=== PATIENT | female | born 1965 | race Two or more races ===

== ENCOUNTER 2020-10-30 15:30 | Inpatient (IN) | payer MEDICAID ==
[~2020-10-30] VITALS: Ht 157.5 cm; Wt 86.2 kg
[2020-10-30] MEDS: CEFTRIAXONE 1 G in IV D5W 50 ML IV SCH (00:45)
[2020-10-30] MEDS ORDERED: ACET-868 PO (16:03)
--- NOTE | 2020-10-30 16:22 | NUR ---
BIBSFAMILY FROM HOME TO ER BED 6. AAOX4. HYPOXIC NOTED 84% ON RA. BREATHING RAOID SHALLOW AND RAPID. AMBULATORY. BROUGHT INFOR SOB. PT REPROTS THAT SHE SYMPTOMS STARTED 9 DAYS AGO WORST IN THE PAST 2 DAYS. PT STATE THAT HSE FELLS WEAKA AND REPORTS NON PRODUCTIVE COUGH. PT REPORTS THAT SHE HAS BEEN EXPOSED TO HER DAUGHTER WHICH IS COVID POSITIVE. PT ON O2 VIA NC @ 4LPM, SATTING AT 95%. WAS AT THE BEDSIDE FOR EVAL. ORDERS RECEIVED, NOTED AND CARRIED OUT. IV LINE ESTABLISHED ON L AC 18G, BLOOD DRAWN AND GIVEN TO NEUROPSYCHOLOGY DIVISION CHIEF. COVID SWAB DONE WELL CHEST XRAY. PT ON MONITOR
[2020-10-30 16:33] LABS: BASOPHILS % (AUTO) 0.5 % (0.0-2.0); HEMATOCRIT 43 % (33-45); HEMOGLOBIN 14.1 g/dL (11.5-14.8); LYMPHOCYTES # (AUTO) 0.6 /CMM (0.8-4.8); MEAN CORPUSCULAR HGB CONC 33 g/dl (31.0-36.0); MEAN CORPUSCULAR VOLUME 92 fL (82-100); MONOCYTES # (AUTO) 0.6 /CMM (0.1-1.30); MONOCYTES % (AUTO) 9.6 % (2.0-12.0); NEUTROPHILS # (AUTO) 5.1 /CMM (1.8-8.9); NEUTROPHILS % (AUTO) 80.9 % (43.0-81.0); PLATELET COUNT (AUTO) 151 /CMM (150-450); RED BLOOD CELL COUNT(AUTO) 4.63 MIL/uL (4.0-5.2); WHITE BLOOD COUNT (AUTO) 6.3 K/uL (4.3-11.0)
[2020-10-30 16:38] LABS: CALCIUM, SERUM 8.5 mg/dL (8.5-10.1); CREATININE 0.9 mg/dL (0.6-1.3); POTASSIUM 3.6 mmol/L (3.5-5.1)
[2020-10-30 16:44] LABS: ALBUMIN 2.7 g/dL (3.4-5.0); BILIRUBIN,DIRECT 0.3 mg/dL (0.0-0.2); BILIRUBIN,TOTAL 0.5 mg/dL (0.2-1.0); TOTAL PROTEIN, SERUM 7.1 g/dL (6.4-8.2)
[2020-10-30 17:10] LABS: D-DIMER 1.68 mg/L(FEU (0.17-0.50)
[2020-10-30] MEDS ORDERED: AZITHROMYCIN 500 MG in IV D5W 250 ML IV ONE (19:00)
[2020-10-30] MEDS ORDERED: ENOXAPARIN SODIUM 40 MG/0.4 ML DISP.SYRIN SQ ONE ×2 (19:00→19:21)
[2020-10-30] MEDS ORDERED: DEXAMETHASONE SOD PHOSPHATE 10 MG/ML VIAL IV ONE (19:00)
[2020-10-30] MEDS ORDERED: CEFTRIAXONE 1GM BAG (ER ONLY) 1 GM/50 ML PIGGYBACK IV ONE (19:00)
[2020-10-30] MEDS ORDERED: CEFTRIAXONE 1GM BAG (ER ONLY) 50 ML IV ONE (19:21)
[2020-10-30] MEDS ORDERED: DEXAMETHASONE SOD PHOSPHATE 10 MG/ML VIAL ONE (19:21)
--- NOTE | 2020-10-30 19:55 | NUR ---
CALLED [facility] PAGED OSMAN LEAL
[2020-10-30] MEDS ORDERED: ONDANSETRON HCL/PF 4 MG/2 ML VIAL IVP PRN (20:30)
[2020-10-30] MEDS ORDERED: ALBUTEROL SULFATE 8 GM HFA.AER.AD IH PRN (20:30)
[2020-10-30] MEDS ORDERED: ACETAMINOPHEN 650 MG/SUPP.RECT RC PRN (20:30)
--- NOTE | 2020-10-30 22:21 | NUR ---
PT NOTED W/ 02 SAT OF 92% DESPITE USING O2 VIA NC AT 6LPM. PT TRANSITIONED TO SIMPLE FACE MASK AT 10LPM.
--- NOTE | 2020-10-30 22:45 | NUR ---
pt is satting well @ 98%. not in distress.
--- NOTE | 2020-10-30 23:18 | NUR ---
pt titrated down to 8lpm simple face mask. satting @ 97%.
--- NOTE | 2020-10-30 23:19 | NUR ---
pt in bed sleeping
--- NOTE | 2020-10-31 00:26 | NUR ---
TOOK OVER PT CARE. PT PLACED IN N/C 4L, SAT 86%. PT THEN PLACED ON 10L SIMPLE MASK SAT 90%. PT AAOX4. AWARE OF BEING ADMITTED. WILL CONTINUE TO MONITOR.
[2020-10-31] MEDS ORDERED: ROCURONIUM BROMIDE 50 MG/5 ML IV ONE (04:01)
[2020-10-31] MEDS ORDERED: ETOMIDATE 2 MG/ML VIAL IV ONE (04:01)
[2020-10-31 05:34] LABS: BASOPHILS % (AUTO) 0.4 % (0.0-2.0); EOSINOPHILS % (AUTO) 0.1 % (0.0-6.0); HEMATOCRIT 42 % (33-45); HEMOGLOBIN 13.8 g/dL (11.5-14.8); LYMPHOCYTES # (AUTO) 0.4 /CMM (0.8-4.8); LYMPHOCYTES % (AUTO) 13.9 % (20.0-44.0); MEAN CORPUSCULAR HGB CONC 33 g/dl (31.0-36.0); MEAN CORPUSCULAR VOLUME 91 fL (82-100); MONOCYTES # (AUTO) 0.2 /CMM (0.1-1.30); MONOCYTES % (AUTO) 7.3 % (2.0-12.0); NEUTROPHILS # (AUTO) 2.5 /CMM (1.8-8.9); NEUTROPHILS % (AUTO) 78.3 % (43.0-81.0); PLATELET COUNT (AUTO) 163 /CMM (150-450); RED BLOOD CELL COUNT(AUTO) 4.63 MIL/uL (4.0-5.2); WHITE BLOOD COUNT (AUTO) 3.2 K/uL (4.3-11.0)
[2020-10-31 05:54] LABS: ALBUMIN 2.5 g/dL (3.4-5.0); BILIRUBIN,TOTAL 0.4 mg/dL (0.2-1.0); CALCIUM, SERUM 8.9 mg/dL (8.5-10.1); CREATININE 0.7 mg/dL (0.6-1.3); MAGNESIUM 2.2 mg/dL (1.8-2.4); PHOSPHORUS 2.6 mg/dL (2.5-4.9); TOTAL PROTEIN, SERUM 7.1 g/dL (6.4-8.2)
[2020-10-31 06:00] LABS: THYROID STIMULATING HORMONE 0.085 uIU/mL (0.358-3.74)
[2020-10-31] MEDS: DEXAMETHASONE SOD PHOSPHATE 10 MG/ML VIAL IV SCH (08:50)
[2020-10-31] MEDS: ENOXAPARIN SODIUM 40 MG/0.4 ML DISP.SYRIN SQ SCH (08:51)
--- NOTE | 2020-10-31 11:20 | NUR ---
PT IS AWAKE, ALERT AND ORIENTED. NAD NOTED. AMBULATORY. STILL ON O2 VIA FACE MASK @ 8LPM SATTING @ 96%.
--- NOTE | 2020-10-31 16:32 | NUR ---
JENNIE MICHAEL, PT'S SON UPDATED REGARDING MOTHERS CONDITION AND AWARE THAT PT IS GOING TO BE ADMITTED. PT'S AUTHORIZED TO GIVE INFORMATION TO THE SON.
--- NOTE | 2020-10-31 16:37 | NUR ---
ABBY MICHAEL, SON [phone]
--- NOTE | 2020-10-31 19:16 | NUR ---
PT SEATING AT BEDSIDE EATING DINNER.
--- NOTE | 2020-10-31 20:35 | NUR ---
pt noted with o2 sat 87% on 8lpm via simple face mask. placed on non rebreather mask @ 15lpm.
[2020-10-31] MEDS ORDERED: CEFTRIAXONE 1GM BAG (ER ONLY) 50 ML IV ONE (20:47)
[2020-10-31] MEDS ORDERED: AZITHROMYCIN 250 MG TABLET ONE (20:48)
--- NOTE | 2020-10-31 20:52 | NUR ---
depite placing pt on non rebreather at 15lpm, pt is still satting @ 91%. Dr. Woods was notified and received an order to place pt on high flow o2. RT made aware.
[2020-10-31] MEDS: CEFTRIAXONE 1 G in IV D5W 50 ML IV SCH (21:03)
[2020-10-31] MEDS: AZITHROMYCIN 250 MG TABLET PO SCH (21:03)
--- NOTE | 2020-10-31 21:50 | NUR ---
pt in is placed on hi flow o2 by rt @ 40lpm, 100%.
[2020-11-01] MEDS: DEXAMETHASONE SOD PHOSPHATE 10 MG/ML VIAL IV SCH (09:13)
[2020-11-01] MEDS: ENOXAPARIN SODIUM 40 MG/0.4 ML DISP.SYRIN SQ SCH ×2 (09:14→21:23)
--- NOTE | 2020-11-01 13:00 | NUR ---
report given to adam burr
--- NOTE | 2020-11-01 13:30 | NUR ---
pt transferred to 115
[2020-11-01 13:34] VITALS: BP 128/73
--- NOTE | 2020-11-01 14:24 | NUR ---
RN ADMITTING NOTE Patient arrived at 1340, ambulated from [facility] to bed, denies any pain. SOB upon exertion, accessory muscle use when breathing, RR 24, o2 sat 86% on 15L non-rebreather. RT placed patient on 60L high-flow o2, Fio2 95%, with additional non-rebreather mask on top--saturating 91-94%. Patient denies any PMH, denies smoking, alcohol, drug use. Skin is intact. Bed is in lowest position, side rails x2 in upright position, call light is within reach, fal safety and aspiration precautions enforced. Will continue with plan of care.
[2020-11-01 14:38] LABS: ABG BASE EXCESS 3.3 mmol/L; ABG OXYGEN SATURATION 94.6 % (92.0-98.5); ABG PCO2 36.1 mmHg (35.0-45.0); ABG PH 7.484 (7.350-7.450); ABG PO2 71.3 mmHg (75.0-100.0); AaDO2 605.6 mmHg; COHb 0.2 % (0.5-1.5); MetHb 0.2 % (0.0-1.5); O2Hb 94.2 % (94.0-97.0); SITE, ABG Right Radial; VENT MODE, BG HFNC 40L 95% 100%
[2020-11-01 16:00] VITALS: BP 130/70
[2020-11-01] MEDS ORDERED: REMDESIVIR (CHARGED) 200 MG, *LOADING DOSE 1 EA in IV NS 0.9% 210 ML IV ONE (17:00)
--- NOTE | 2020-11-01 18:46 | NUR ---
RN CLOSING NOTE Patient is resting in bed, A/O x4, . SOB upon exertion, accessory muscle use when breathing, RR 24, o2 sat 86% on 15L non-rebreather. RT placed patient on 60L high-flow o2, Fio2 95%, with additional non-rebreather mask on top--saturating 97%. All patient needs met, all due medications given, patient is independent with self care. Bed is in lowest position, side rails x2 in upright position, call light is within reach, fal safety and aspiration precautions enforced. Will endorse to casino shift manager for LI.
[2020-11-01 20:00] VITALS: BP 130/75
--- NOTE | 2020-11-01 20:00 | NUR ---
RN OPENING NOTE: Patient in bed resting comfortably. She is awake, alert, and oriented x4, able to make needs known. Patient breathing well on high flow oxygen with non rebreather over. No acute respiratory distress noted. On quality assurance monitor chassis, sinus rhythm in the 70s. IV access noted on left AC, 18 gauge. Safety measures in place, bed is in the lowest level, bed is locked, alarm is on, side rails x2 are up, and call light is within reach. Will continue to monitor.
[2020-11-01] MEDS ORDERED: CEFTRIAXONE 1 G VIAL ONE (21:18)
[2020-11-01] MEDS: AZITHROMYCIN 250 MG TABLET PO SCH (21:20)
[2020-11-01] MEDS: CEFTRIAXONE 1 G in IV D5W 50 ML IV SCH (21:20)
[2020-11-02] VITALS (8 sets, daily range): BP systolic 120–134; BP diastolic 61–83
--- NOTE | 2020-11-02 03:27 | NUR ---
ordered Tylenol 650 PO and MICHELLE Tylenol 650 suppository.
[2020-11-02] MEDS: ACETAMINOPHEN 325 MG TABLET PO PRN (04:51)
[2020-11-02 07:11] LABS: ALBUMIN 2.3 g/dL (3.4-5.0); BILIRUBIN,DIRECT 0.2 mg/dL (0.0-0.2); BILIRUBIN,TOTAL 0.4 mg/dL (0.2-1.0); CALCIUM, SERUM 8.6 mg/dL (8.5-10.1); CREATININE 0.7 mg/dL (0.6-1.3); POTASSIUM 3.8 mmol/L (3.5-5.1); TOTAL PROTEIN, SERUM 6.4 g/dL (6.4-8.2)
[2020-11-02 07:26] LABS: BASOPHILS % (AUTO) 0.1 % (0.0-2.0); HEMATOCRIT 39 % (33-45); HEMOGLOBIN 12.7 g/dL (11.5-14.8); LYMPHOCYTES # (AUTO) 0.9 /CMM (0.8-4.8); LYMPHOCYTES % (AUTO) 6.9 % (20.0-44.0); MEAN CORPUSCULAR HGB CONC 33 g/dl (31.0-36.0); MEAN CORPUSCULAR VOLUME 91 fL (82-100); MONOCYTES # (AUTO) 1.7 /CMM (0.1-1.30); MONOCYTES % (AUTO) 13.4 % (2.0-12.0); NEUTROPHILS % (AUTO) 79.6 % (43.0-81.0); PLATELET COUNT (AUTO) 225 /CMM (150-450); RED BLOOD CELL COUNT(AUTO) 4.27 MIL/uL (4.0-5.2); WHITE BLOOD COUNT (AUTO) 12.5 K/uL (4.3-11.0)
--- NOTE | 2020-11-02 07:30 | NUR ---
RN TELE1 PATIENT IN BED, NO S/S OF DISTRESS, ON HIGH FLOW WITH NON REBREATHER, A/O X4, TELE MONITOR IN PLACE, SINUS RHYTHM, HR IN THE 70S, BATHROOM PRIVILEGES WITH ASSIST, AMBULATES WITH ASSIST, SKIN INTACT, FALL RISK, BED ALARM ON, REGULAR DIET, BED IN LOWEST LOCKED POSITION, CALL LIGHT WITHIN REACH, SAFETY MEASURES IN PLACE, WILL CONTINUE TO MONITOR.
--- NOTE | 2020-11-02 07:54 | NUR ---
RN CLOSING NOTE: Patient in bed resting comfortably. Patient breathing even and unlabored with no SOB or acute respiratory distress. All needs were met. Safety measures maintained. Bed is in the lowest level, bed is locked, alarm is on, side rails x2 are up, and call light is within reach. Endorsed to morning nurse.
[2020-11-02] MEDS: DEXAMETHASONE SOD PHOSPHATE 10 MG/ML VIAL IV SCH (08:53)
[2020-11-02] MEDS: ENOXAPARIN SODIUM 40 MG/0.4 ML DISP.SYRIN SQ SCH ×2 (08:54→20:40)
--- NOTE | 2020-11-02 09:30 | NUR ---
RN TELE1 PATIENT WANTED TO WALK TO THE BATHROOM, O2 SATURATION IS 96%, SO APPROVED WITH RT AND CHARGE NURSE TO PUT THE PATIENT ON THE NON REBREATHER, PATIENT USED CANE, TOLERATED WELL, WAS SLIGHTLY SHORT OF BREATH AND O2 SAT DROPPED TO THE 70S BUT JUMPED BACK UP TO 98% ONCE BACK IN BED WITH HIGH FLOW ON.
--- NOTE | 2020-11-02 10:59 | NUR ---
RN TELE1 SPOKE TO VADIM, ROUNDING FOR DR VICTORIA, NOTIFIED OF THE PATIENTS EXPERIENCE GOING TO THE BATHROOM, SHE SAID IT IS FINE THAT SHE DESATURATED WHEN WALKING LONG HER O2 WENT BACK UP ONCE IN BED, WHICH IT DID. NO NEW ORDERS.
--- NOTE | 2020-11-02 12:30 | NUR ---
RN TELE1 REPOSITION THE PATIENT, TO SITTING ON THE SIDE OF THE BED WITH FEET DANGLING IN ORDER TO EAT LUNCH
--- NOTE | 2020-11-02 14:31 | NUR ---
ROUNDED ON PATIENT, SHE SAID SHE WAS HOT BUT HER TEMPERATURE IS UNCHANGED, DECREASED THE TEMPERATURE IN THE ROOM 2 DEGREES, WILL CONTINUE TO MONITOR, O2 SAT 95%.
--- NOTE | 2020-11-02 15:24 | NUR ---
RN TELE1 PATIENT RESTING IN BED, COMPLAINED THE PULSE OX WAS TOO TIGHT ON HER FINGER, REPLACED IT AND MOVED TO THE MIDDLE FINGER OF THE RIGHT HAND.
[2020-11-02] MEDS: REMDESIVIR (CHARGED) 100 MG in IV NS 0.9% 230 ML IV SCH (16:13)
--- NOTE | 2020-11-02 16:51 | NUR ---
RN TELE1 PATIENT IS IN BED, NO CHANGES, GAVE REPORT TO ABIGAIL GOODEN ON THE UNIT. ENDORSED CARE.
--- NOTE | 2020-11-02 17:30 | NUR ---
RECEIVED REPORT FROM ABIGAIL GARCIA FOR CONTINUATION OF CARE.
--- NOTE | 2020-11-02 18:57 | NUR ---
WARP CLAMPER CLOSED NOTES PATIENT IS A/O X 4 WITH HIGHFLOW O2 FLOW RATE 60 SPO2 97%. NO COMPLAIN OF PAIN AT THIS TIME. IN L AC #18g SL. PATIENT KEPT CLEAN AND DRY. ALL NEEDS, CARE, TREATMENT,AND MEDICATIONS WERE ADMINISTERED ANTICIPATED PER ORDER. SAFETY MEASURES ARE APPLIED, BED IS IN LOW POSITION SIDE RAILS UP X 2. CALL LIGHT WITHIN REACH WILL ENDORSE TO THE SUPERINTENDENT SALES NURSE.
--- NOTE | 2020-11-02 20:00 | NUR ---
RN NOTE RECEIVED PT IN BED RESTING, PT IS A/O X4 ON HIGH FLOW 60L/MIN SATING 96%. PT IS ON ASSISTANT PROFESSOR OF COMMUNICATION SHOWINGSR WITH HR IN 70s. SAFETY MEASURES IN PLACE.
[2020-11-02] MEDS: CEFTRIAXONE 1 G in IV D5W 50 ML IV SCH (20:41)
[2020-11-02] MEDS: AZITHROMYCIN 250 MG TABLET PO SCH (20:41)
--- NOTE | 2020-11-02 22:00 | NUR ---
RN NOTE REPORT GIVEN TO THE NURSE FOR LI.
--- NOTE | 2020-11-02 22:10 | NUR ---
RN NOTES: RECEIVED ENDORSEMENT FROM LIANE/RN, LYING IN BED, ON HIGH FLOW 60L/MIN SATING 96%,TELE MONITORING SR RATE 70'S, ON CLOSE WATCH, DROPLET/CONTATC PRECAUTION OBSERVED.ORIENTED TO INCOMING STAFF, FALL AND SAFETY PRECAUTION OBSERVED, BED LOW AND LOCKED, CALL LIGHT WITHIN EASY REACH. SAFETY MEASURES IN PLACE.
[2020-11-03] VITALS (7 sets, daily range): BP systolic 133–152; BP diastolic 61–77
--- NOTE | 2020-11-03 00:34 | NUR ---
RN NOTES: AROUND 2319 SHE REQUEST TO PEE IN THE BED PAD ASSITED BY RN AND CHARTER PILOT, ABLE TO PEE AROUND 150CC DARK TEA COLORED URINE.CLEAN AND CHANGE.
--- NOTE | 2020-11-03 05:10 | NUR ---
RN NOTES: ASLEEP AT SHORT INTERVAL, KEPT IN HIGH FOWLERS POSITION CHECK AT FREQUENT INTERVALS, AROUND 0330 RT NOTIFIED TO CHECK THE PATIENT, NO SIGN OF RESPIRATORY DEPRESSION SPO2 REMAIN BETWEEN 93-94%.GET BACK TO SLEEP.
--- NOTE | 2020-11-03 06:19 | NUR ---
RN NOTES: NO PAIN OR DISCOMFORT ABLE TO REST AND SLEEP, BED LOW AND LOCKED, CALL LIGHT KEPT WITHIN EASY REACH, SIDE RAILS X2 UP, SPO2 REMAIN 92-93%, ON HIGH FLOW OXYGEN. NEEDS ATTENDED ENDORSED FOR CONTINUITY OF CARE.
[2020-11-03 06:45] LABS: BASOPHILS % (AUTO) 0.2 % (0.0-2.0); EOSINOPHILS % (AUTO) 0.2 % (0.0-6.0); HEMATOCRIT 39 % (33-45); LYMPHOCYTES % (AUTO) 8.6 % (20.0-44.0); MEAN CORPUSCULAR HGB CONC 33 g/dl (31.0-36.0); MEAN CORPUSCULAR VOLUME 91 fL (82-100); MONOCYTES % (AUTO) 8.4 % (2.0-12.0); NEUTROPHILS # (AUTO) 9.8 /CMM (1.8-8.9); NEUTROPHILS % (AUTO) 82.6 % (43.0-81.0); PLATELET COUNT (AUTO) 196 /CMM (150-450); RED BLOOD CELL COUNT(AUTO) 4.32 MIL/uL (4.0-5.2); WHITE BLOOD COUNT (AUTO) 11.8 K/uL (4.3-11.0)
[2020-11-03 07:04] LABS: ALBUMIN 2.5 g/dL (3.4-5.0); BILIRUBIN,DIRECT 0.2 mg/dL (0.0-0.2); BILIRUBIN,TOTAL 0.6 mg/dL (0.2-1.0); CALCIUM, SERUM 8.5 mg/dL (8.5-10.1); CREATININE 0.6 mg/dL (0.6-1.3); POTASSIUM 3.8 mmol/L (3.5-5.1); TOTAL PROTEIN, SERUM 6.7 g/dL (6.4-8.2)
--- NOTE | 2020-11-03 08:00 | NUR ---
MANAGER EMPLOYEE BENEFITS OPENING NOTES PATIENT IS A/O X 4 WITH HIGHFLOW O2 FLOW RATE 60 SPO2 97%. DENIES SOB. WITH OCCASIONAL MOIST COUGHING EPISODES. NO COMPLAIN OF PAIN AT THIS TIME. IN L AC #18g SL. PATIENT KEPT CLEAN AND DRY. SAFETY MEASURES ARE APPLIED, BED IS IN LOW POSITION SIDE RAILS UP X 2. CALL LIGHT WITHIN REACH
[2020-11-03] MEDS: DEXAMETHASONE SOD PHOSPHATE 10 MG/ML VIAL IV SCH (12:22)
[2020-11-03] MEDS: ENOXAPARIN SODIUM 40 MG/0.4 ML DISP.SYRIN SQ SCH ×2 (12:23→21:26)
[2020-11-03] MEDS: REMDESIVIR (CHARGED) 100 MG in IV NS 0.9% 230 ML IV SCH (18:47)
--- NOTE | 2020-11-03 19:00 | NUR ---
ASSISTED PT IN BEDSIDE COMMODE TO VOID WITH NO DISTRESS WITH ONGOING HIGH FLOW 02 AT 60L.CALL LIGHT PLACED WITHIN REACH.
--- NOTE | 2020-11-03 19:30 | NUR ---
RN NOTE RECEIVED PATIENT IN BED, ON HIGH STREET'S, A/OX4. PATIENT IN NO S/SX OF ACUTE DISTRESS AT THIS TIME. PATIENT'S BREATHING IS EVEN AND UNLABORED. PATIENT IS ON 60 L OF OXYGEN VIA HIGH FLOW NC, TOLERATING WELL, SATURATING AT 96%. PATIENT ON TELE MONITO READING SR, HR IS 81. NOTED IV SITE AT RFA 22G, PATENT AND FLUSHING WELL, NO S/S OF INFECTION OR INFILTRATION. PATIENT IS AMBULATORY WITH BRP WITH MINIMAL ASSISTANCE NEEDED. SAFETY MEASURES IMPLEMENTED PER PROTOCOL. PATIENT BED ALARM IS ON. HEAD OF BED ELEVATED. BED IS LOCKED, IN LOWEST POSITION AND SIDE RAILS UP. CALL LIGHT WITHIN REACH OF THE PATIENT. PER MORNING SHIFT RN, CONSENT FOR CONVALESCENT PLASMA FAXED TO LAB, AWAITING AVAILABILITY. WILL CONTINUE TO MONITOR AND REASSESS FOR ANY CHANGES.
[2020-11-03] MEDS: CEFTRIAXONE 1 G in IV D5W 50 ML IV SCH (21:24)
[2020-11-03] MEDS: AZITHROMYCIN 250 MG TABLET PO SCH (21:25)
--- NOTE | 2020-11-04 | NUR ---
RN NOTE NOTED TEMP 99.3, COOLING MEASURES PROVIDED, PRN TYLENOL ADMINISTERED ORDERED. WILL CONTINUE TO MONITOR TEMP
[2020-11-04 01:00] VITALS: BP 121/55
[2020-11-04] MEDS: ACETAMINOPHEN 325 MG TABLET PO PRN ×2 (01:03→09:29)
[2020-11-04 05:00] VITALS: BP 138/72
--- NOTE | 2020-11-04 07:58 | NUR ---
PT RECEIVED IN BED, ALERT AND ORIENTED X 4, ON HIGH FLOW 60L, O2 SAT 96-98%. NO RESPIRATORY DISTRESS. PT HAS RFA 22 SL. NO SIGNS OF INFECTION OR INFILTRATION. PT TO RECEIVE CONVALESCENT PLASMA AND REMDESEVIR. PT IN BED LOCKED LOWEST POSITION, CALL LIGHT WITHIN REACH, ALL SAFETY MEASURES IN PLACE. WILL CONTINUE TO MONITOR CLOSELY
[2020-11-04 08:15] LABS: BASOPHILS % (AUTO) 0.1 % (0.0-2.0); EOSINOPHILS % (AUTO) 1.4 % (0.0-6.0); HEMATOCRIT 40 % (33-45); HEMOGLOBIN 13.2 g/dL (11.5-14.8); LYMPHOCYTES # (AUTO) 0.9 /CMM (0.8-4.8); LYMPHOCYTES % (AUTO) 5.4 % (20.0-44.0); MEAN CORPUSCULAR HGB CONC 33 g/dl (31.0-36.0); MEAN CORPUSCULAR VOLUME 91 fL (82-100); MONOCYTES # (AUTO) 1.1 /CMM (0.1-1.30); MONOCYTES % (AUTO) 6.7 % (2.0-12.0); NEUTROPHILS % (AUTO) 86.4 % (43.0-81.0); PLATELET COUNT (AUTO) 175 /CMM (150-450); RED BLOOD CELL COUNT(AUTO) 4.34 MIL/uL (4.0-5.2); WHITE BLOOD COUNT (AUTO) 16.2 K/uL (4.3-11.0)
[2020-11-04 09:00] VITALS: BP 150/73
[2020-11-04] MEDS: DEXAMETHASONE SOD PHOSPHATE 10 MG/ML VIAL IV SCH (09:21)
[2020-11-04] MEDS: ENOXAPARIN SODIUM 40 MG/0.4 ML DISP.SYRIN SQ SCH ×2 (09:24→21:04)
[2020-11-04 10:07] LABS: ALBUMIN 2.3 g/dL (3.4-5.0); BILIRUBIN,DIRECT 0.3 mg/dL (0.0-0.2); BILIRUBIN,TOTAL 0.7 mg/dL (0.2-1.0); CALCIUM, SERUM 8.6 mg/dL (8.5-10.1); CREATININE 0.6 mg/dL (0.6-1.3); POTASSIUM 4.1 mmol/L (3.5-5.1); TOTAL PROTEIN, SERUM 6.6 g/dL (6.4-8.2)
[2020-11-04 13:00] VITALS: BP 158/77
[2020-11-04 17:00] VITALS: BP 142/71
[2020-11-04] MEDS: REMDESIVIR (CHARGED) 100 MG in IV NS 0.9% 230 ML IV SCH (18:20)
--- NOTE | 2020-11-04 19:50 | NUR ---
PATIENT REMAINS IN BED AO X4, ON HIGH FLOW 60L, 100% PLUS NRB 15L WITH O2 SAT LEVEL >93%, NO DISTRESS NOTED AT THIS TIME, PATIENT TOLERATED WELL, SOB ON EXERTION, RFA 22G, S/L, ALL SAFETY MEASURES IN PLACED, S/R BED X2 UP, CALL LIGHT WI REACH, WILL CONTINUE TO MONITOR CLOSELY.
--- NOTE | 2020-11-04 20:23 | NUR ---
PT REMAINS IN BED ON HIGH FLOW 60L, 100% AND NRB 15L. PT 94% O2 SAT, SLIGHT LABORED BREATHING. PATIENT ALERT AND ORIETNED X 4. ENDORSED TO ONCOMING RN. PT IS AMBULATORY WITH ASSIST. PT HAS RFA 22 SALINE LOCKED. NO SIGNS OF INFECTION OR INFILTRATION. REPORT GIVEN TO LOUIS JEFFERSON
[2020-11-04] MEDS: CEFTRIAXONE 1 G in IV D5W 50 ML IV SCH (20:30)
[2020-11-04 21:00] VITALS: BP 146/75
[2020-11-05 01:00] VITALS: BP 138/83
[2020-11-05 04:00] VITALS: BP 130/69
[2020-11-05 06:31] LABS: BASOPHILS % (AUTO) 0.2 % (0.0-2.0); EOSINOPHILS % (AUTO) 1.2 % (0.0-6.0); HEMATOCRIT 40 % (33-45); HEMOGLOBIN 13.1 g/dL (11.5-14.8); LYMPHOCYTES # (AUTO) 1.2 /CMM (0.8-4.8); LYMPHOCYTES % (AUTO) 5.8 % (20.0-44.0); MEAN CORPUSCULAR HGB CONC 33 g/dl (31.0-36.0); MEAN CORPUSCULAR VOLUME 91 fL (82-100); MONOCYTES # (AUTO) 1.4 /CMM (0.1-1.30); MONOCYTES % (AUTO) 6.4 % (2.0-12.0); NEUTROPHILS # (AUTO) 18.4 /CMM (1.8-8.9); NEUTROPHILS % (AUTO) 86.4 % (43.0-81.0); PLATELET COUNT (AUTO) 217 /CMM (150-450); RED BLOOD CELL COUNT(AUTO) 4.41 MIL/uL (4.0-5.2); WHITE BLOOD COUNT (AUTO) 21.3 K/uL (4.3-11.0)
--- NOTE | 2020-11-05 06:54 | NUR ---
PATIENT REMAINS IN BED AO X4, ON HIGH FLOW 60L, 100% PLUS NRB 15L WITH O2 SAT LEVEL >88-95%ALL NIGHT, NO DISTRESS NOTED AT THIS TIME, NO IMPROVEMENT NO DETERIORATION DURING THE NIGHT, ALL SAFETY MEASURES IN PLACED, S/R BED X2 UP, CALL LIGHT WI REACH, WILL ENDORSE CONTINUITY OF CARE TO ONCOMING NURSE.
[2020-11-05 07:18] LABS: ALBUMIN 2.2 g/dL (3.4-5.0); BILIRUBIN,DIRECT 0.3 mg/dL (0.0-0.2); BILIRUBIN,TOTAL 0.6 mg/dL (0.2-1.0); CALCIUM, SERUM 8.5 mg/dL (8.5-10.1); CREATININE 0.7 mg/dL (0.6-1.3); POTASSIUM 4.3 mmol/L (3.5-5.1); TOTAL PROTEIN, SERUM 6.7 g/dL (6.4-8.2)
--- NOTE | 2020-11-05 07:38 | NUR ---
PT ASLEEP AND AROUSABLE. HIGH FLOW 60L, 100% PLUS NRB 15L WITH NO DISTRESS NOTED AT THIS TIME, RESPIRATIONS EVEN UNLABORED. SKIN WARM. NO SIGNS OF PAIN. R FA IV INTACT, DRESSING INTACT, NO SIGNS OF REDNESS OR INFILTRATION. ALL SAFETY MEASURES IN PLACED, S/R BED X2 UP, BED LOW LOCKED, CALL LIGHT IN REACH, BED ALARM ON.
[2020-11-05 09:00] VITALS: BP 143/66
[2020-11-05] MEDS: DEXAMETHASONE SOD PHOSPHATE 10 MG/ML VIAL IV SCH (09:25)
[2020-11-05] MEDS: ENOXAPARIN SODIUM 40 MG/0.4 ML DISP.SYRIN SQ SCH (09:27)
[2020-11-05 09:44] LABS: BAND % (MANUAL) 2 % (0.0-5.0); EOSINOPHILS % (MANUAL) 2 % (0-4); LYMPHOCYTES % (MANUAL) 8 % (16-48); MONOCYTES % (MANUAL) 6 % (0-11.0); NEUTROPHILS % (MANUAL) 82 (42-76)
[2020-11-05 13:00] VITALS: BP 146/66
[2020-11-05 16:00] VITALS: BP 144/82
[2020-11-05] MEDS: REMDESIVIR (CHARGED) 100 MG in IV NS 0.9% 230 ML IV SCH (18:07)
--- NOTE | 2020-11-05 19:45 | NUR ---
PT ASLEEP AND AROUSABLE W NO ACUTE CHANGES THROUGHOUT THE SHIFT. HIGH FLOW 60L, 100% PLUS NRB 15L WITH NO DISTRESS NOTED AT THIS TIME, RESPIRATIONS EVEN UNLABORED. SKIN WARM. NO SIGNS OF PAIN. R FA IV INTACT, DRESSING INTACT, NO SIGNS OF REDNESS OR INFILTRATION. ALL SAFETY MEASURES IN PLACED, S/R BED X2 UP, BED LOW LOCKED, CALL LIGHT IN REACH, BED ALARM ON. ENDORSED TO PM RN. ALL ORDERS IMPLEMENTED.
[2020-11-05 20:00] VITALS: BP 114/62
[2020-11-05] MEDS: CEFTRIAXONE 1 G in IV D5W 50 ML IV SCH (20:30)
[2020-11-06] VITALS (7 sets, daily range): BP systolic 118–135; BP diastolic 66–73
[2020-11-06] MEDS: ENOXAPARIN SODIUM 40 MG/0.4 ML DISP.SYRIN SQ SCH ×3 (00:02→20:56)
[2020-11-06] MEDS ORDERED: GUAIFENESIN 300 MG/15 ML UDC PO PRN (01:30)
[2020-11-06] MEDS: GUAIFENESIN 300 MG/15 ML UDC PO PRN ×3 (02:07→20:57)
[2020-11-06 05:59] LABS: BASOPHILS % (AUTO) 0.2 % (0.0-2.0); EOSINOPHILS % (AUTO) 0.2 % (0.0-6.0); HEMATOCRIT 39 % (33-45); HEMOGLOBIN 12.7 g/dL (11.5-14.8); LYMPHOCYTES # (AUTO) 0.9 /CMM (0.8-4.8); LYMPHOCYTES % (AUTO) 5.2 % (20.0-44.0); MEAN CORPUSCULAR HGB CONC 33 g/dl (31.0-36.0); MEAN CORPUSCULAR VOLUME 91 fL (82-100); MONOCYTES # (AUTO) 1.3 /CMM (0.1-1.30); MONOCYTES % (AUTO) 8.1 % (2.0-12.0); NEUTROPHILS # (AUTO) 14.3 /CMM (1.8-8.9); NEUTROPHILS % (AUTO) 86.3 % (43.0-81.0); PLATELET COUNT (AUTO) 219 /CMM (150-450); RED BLOOD CELL COUNT(AUTO) 4.26 MIL/uL (4.0-5.2); WHITE BLOOD COUNT (AUTO) 16.6 K/uL (4.3-11.0)
[2020-11-06 06:23] LABS: BILIRUBIN,DIRECT 0.2 mg/dL (0.0-0.2); BILIRUBIN,TOTAL 0.5 mg/dL (0.2-1.0); CALCIUM, SERUM 8.5 mg/dL (8.5-10.1); CREATININE 0.6 mg/dL (0.6-1.3); POTASSIUM 4.3 mmol/L (3.5-5.1); TOTAL PROTEIN, SERUM 6.6 g/dL (6.4-8.2)
--- NOTE | 2020-11-06 06:46 | NUR ---
ALERT AND ORIENTATED X4 VERBALIZES HER NEEDS NSR ON THE TELE MONITOR HIGHFLOW 60/100 SATS 98% USES THE BSC D/T LEG WEAKNESS
--- NOTE | 2020-11-06 08:00 | NUR ---
electric motor analyst notes. Received patient in bed. She is alert and oriented x4. On high flow 02 at 60 liters with Fi02 100% and with saturation of 98%. Patient is on tele monitor with HR of 74bmp. Patient had breakfast and c/o cough, she was given prn robitussin . Right forearm HL intact and flushed well. Plan of care discussed with patient. Bed in lowest position and will continue to monitor.Call light with in reach.
[2020-11-06] MEDS: DEXAMETHASONE SOD PHOSPHATE 10 MG/ML VIAL IV SCH (08:35)
[2020-11-06 09:15] LABS: ABG BASE EXCESS 2.4 mmol/L; ABG OXYGEN SATURATION 90.4 % (92.0-98.5); ABG PH 7.456 (7.350-7.450); ABG PO2 55.9 mmHg (75.0-100.0); AaDO2 619.1 mmHg; COHb 0.7 % (0.5-1.5); MetHb 0.1 % (0.0-1.5); O2Hb 89.7 % (94.0-97.0); SITE, ABG Right Radial; VENT MODE, BG HFNC 60L 100% +NRB
--- NOTE | 2020-11-06 10:00 | NUR ---
radio television announcer note rounds made ,all needs attended, call light within reach will monitor
--- NOTE | 2020-11-06 12:00 | NUR ---
AIR BOX TESTER NOTES Patient noted with temp of 99.8 , feeling hot, ice pack applied.
--- NOTE | 2020-11-06 15:50 | NUR ---
telephone information clerk note patient resting comfortably all needs attended still with high flow o2 ,saturation 95% will monitor
--- NOTE | 2020-11-06 18:52 | NUR ---
TECHNICIAN PLANT AND MAINTENANCE NOTES Patient is alert and oriented. She is on high flow 02 with 02 sat95%. She is resting comfortably and did not c/o sob. Call light with in reach. Will continue to monitor.
--- NOTE | 2020-11-06 19:45 | NUR ---
RN NOTES RECEIVED PATIENT IN BED, ALERT AND ORIENTED X 4. ON O2 HIGH FLOW AT 60 L FIO2 100% SATING AT 97 %. COUGH NOTED. NOT IN ANY ACUTE DISTRESS. DENIES SOB. ON TELE MONITOR SR HR 76. DENIES ANY PAIN. WITH R FA IV G22, PATENT AND INTACT, FLUSHED. NO SIGNS OF INFILTRATION, NO INFECTION NOTED. ISOLATION PRECAUTION OBSERVED FOR COVID POSITIVE. ALL SAFETY MEASURES IMPLEMENTED PER PROTOCOL. BED LOCKED, IN LOWEST POSITION. SIDE RAILS UP X 2. CALL LIGHT WITHIN REACH.
--- NOTE | 2020-11-06 20:30 | NUR ---
HOT PUNCH PRESS OPERATOR NOTE VERIFIED WITH PHARMACY ROCEPHIN WAS NOT GIVEN FOR 2 DAYS IN A ROW ACCORDING TO EMAR. PER PHARMACY NOT SURE WHAT HAPPENED ON NURSING SIDE. ANTIBIOTIC NEEDS TO BE GIVEN TONIGHT. HANGED THE ROCEPHIN ORDERED.
[2020-11-06] MEDS: CEFTRIAXONE 1 G in IV D5W 50 ML IV SCH (20:55)
[2020-11-07] VITALS (7 sets, daily range): BP systolic 112–143; BP diastolic 72–79
[2020-11-07] MEDS: ACETAMINOPHEN 325 MG TABLET PO PRN (01:49)
--- NOTE | 2020-11-07 01:49 | NUR ---
RN NOTE PATIENT COMPLAINED OF MILD PAIN ON NECK AREA. ACETAMINOPHEN 650 MG GIVEN ORDERED.
[2020-11-07 06:05] LABS: BASOPHILS % (AUTO) 0.2 % (0.0-2.0); EOSINOPHILS % (AUTO) 0.5 % (0.0-6.0); HEMATOCRIT 40 % (33-45); HEMOGLOBIN 13.1 g/dL (11.5-14.8); LYMPHOCYTES # (AUTO) 1.2 /CMM (0.8-4.8); LYMPHOCYTES % (AUTO) 6.9 % (20.0-44.0); MEAN CORPUSCULAR HGB CONC 33 g/dl (31.0-36.0); MEAN CORPUSCULAR VOLUME 92 fL (82-100); MONOCYTES # (AUTO) 1.6 /CMM (0.1-1.30); NEUTROPHILS # (AUTO) 14.6 /CMM (1.8-8.9); NEUTROPHILS % (AUTO) 83.4 % (43.0-81.0); PLATELET COUNT (AUTO) 255 /CMM (150-450); RED BLOOD CELL COUNT(AUTO) 4.38 MIL/uL (4.0-5.2); WHITE BLOOD COUNT (AUTO) 17.5 K/uL (4.3-11.0)
[2020-11-07 06:07] LABS: CALCIUM, SERUM 8.9 mg/dL (8.5-10.1); CREATININE 0.6 mg/dL (0.6-1.3); POTASSIUM 4.2 mmol/L (3.5-5.1)
--- NOTE | 2020-11-07 07:16 | NUR ---
TECHNOLOGY ADMINISTRATOR CLOSING NOTES PATIENT REMAINS IN BED, ABLE TO MAKE NEEDS KNOWN. CONTINUE ON HIGH FLOW 60L, SATING TO 97 % DENIES ANY SOB. PATIENT COUGHING, ROBITUSSIN WAS GIVEN. ALL OTHER DUE MEDS WERE GIVEN. RIGHT FA IV LINE PATENT AND INTACT. ISOLATION PRECAUTION OBSERVED FOR COVID. ALL SAFETY MEASURES IMPLEMENTED PER PROTOCOL, BED LOCKED IN LOWEST POSITION. SIDE RAILS UP X 2. CALL LIGHT WITHIN REACH. WILL ENDORSE TO NEXT SHIFT NURSE FOR LI.
--- NOTE | 2020-11-07 08:00 | NUR ---
RN OPENING NOTES PATIENT REMAINS IN BED, ABLE TO MAKE NEEDS KNOWN. CONTINUE ON HIGH FLOW 60L, SATING TO 98 % DENIES ANY SOB. RIGHT FA IV LINE PATENT AND INTACT. ISOLATION PRECAUTION OBSERVED FOR COVID. ALL SAFETY MEASURES IMPLEMENTED PER PROTOCOL, BED LOCKED IN LOWEST POSITION. SIDE RAILS UP X 2. CALL LIGHT WITHIN REACH. WILL CONTINUE TO MONITOR
[2020-11-07] MEDS: DEXAMETHASONE SOD PHOSPHATE 10 MG/ML VIAL IV SCH (09:02)
[2020-11-07] MEDS: ENOXAPARIN SODIUM 40 MG/0.4 ML DISP.SYRIN SQ SCH ×2 (09:05→21:41)
--- NOTE | 2020-11-07 13:00 | NUR ---
RN NOTES PT HAS NO SIGN OR SYMPTOMS OF SOB . EXPLAINED THE IMPORTANCE OF HAVING THE MASK
--- NOTE | 2020-11-07 18:56 | NUR ---
RN CLOSING NOTES PATIENT REMAINS IN BED. ALERT AND ORIENTED X4. CONTINUE ON HIGH FLOW 60L, SATING TO 98 % DENIES ANY SOB. RIGHT FA IV LINE PATENT AND INTACT. ISOLATION PRECAUTION OBSERVED FOR COVID. ALL SAFETY MEASURES IMPLEMENTED PER PROTOCOL, BED LOCKED IN LOWEST POSITION. SIDE RAILS UP X 2. CALL LIGHT WITHIN REACH. WILL ENDORSE TO PM NURSE FOR LI
[2020-11-07] MEDS: CEFTRIAXONE 1 G in IV D5W 50 ML IV SCH (21:39)
[2020-11-07] MEDS: GUAIFENESIN 300 MG/15 ML UDC PO PRN (21:39)
[2020-11-08] VITALS: BP 128/71
[2020-11-08 04:00] VITALS: BP 142/72
[2020-11-08 06:48] LABS: BASOPHILS # (AUTO) 0.1 /CMM (0.0-0.2); BASOPHILS % (AUTO) 0.3 % (0.0-2.0); EOSINOPHILS % (AUTO) 0.7 % (0.0-6.0); HEMATOCRIT 41 % (33-45); HEMOGLOBIN 13.3 g/dL (11.5-14.8); LYMPHOCYTES # (AUTO) 1.5 /CMM (0.8-4.8); LYMPHOCYTES % (AUTO) 5.8 % (20.0-44.0); MEAN CORPUSCULAR HGB CONC 33 g/dl (31.0-36.0); MEAN CORPUSCULAR VOLUME 91 fL (82-100); MONOCYTES # (AUTO) 2.4 /CMM (0.1-1.30); MONOCYTES % (AUTO) 9.7 % (2.0-12.0); NEUTROPHILS # (AUTO) 21.1 /CMM (1.8-8.9); NEUTROPHILS % (AUTO) 83.5 % (43.0-81.0); PLATELET COUNT (AUTO) 276 /CMM (150-450); RED BLOOD CELL COUNT(AUTO) 4.46 MIL/uL (4.0-5.2); WHITE BLOOD COUNT (AUTO) 25.2 K/uL (4.3-11.0)
--- NOTE | 2020-11-08 06:58 | NUR ---
TORCH OPERATOR OPENING NOTES RECEIVED PT AWAKE IN BED AT THIS TIME. PT AOX3. PT ABLE TO VERBALIZE NEEDS. NO SOB NOTED, NO S/S OF ANY ACUTE DISTRESS NOTED. NO C/O PAIN AT THIS TIME. RESPIRATIONS ARE EVEN AND UNLABORED. PT NOTED ON 15LPM NON REBREATHER. IV ACCESS NOTED IN RFA G#22, INTACT, PATENT AND FLUSHING WELL. SAFETY PRECAUTION IN PLACE AND MAINTAINED AT ALL TIMES. BED IN LOWEST LOCKED POSITION, HOB ELEVATED, SIDE RAILS UP X 2, CALL LIGHT AND TABLE WITHIN REACH. WILL CONTINUE TO MONITOR
[2020-11-08 07:04] LABS: CREATININE 0.7 mg/dL (0.6-1.3); POTASSIUM 3.8 mmol/L (3.5-5.1)
--- NOTE | 2020-11-08 07:48 | NUR ---
PT STAYED STABLE, NO ACUTE CHANGES REPORT GIVEN TO INCOMING SHIFT FOR LI.
[2020-11-08 08:00] VITALS: BP 130/68
--- NOTE | 2020-11-08 09:00 | NUR ---
PT NOTED WITH TEMP 99.1. COOLING MEASURES IN PLACE, ICE PACK IN ARMPIT, COOL WASH CLOTH ON FOREHEAD, PT UNCOVERED. WILL CONTINUE TO MONITOR
[2020-11-08] MEDS: DEXAMETHASONE SOD PHOSPHATE 10 MG/ML VIAL IV SCH (09:43)
[2020-11-08] MEDS: ENOXAPARIN SODIUM 40 MG/0.4 ML DISP.SYRIN SQ SCH (09:44)
[2020-11-08 12:00] VITALS: BP 147/74
[2020-11-08 16:00] VITALS: BP 101/65
[2020-11-08] MEDS: ACETAMINOPHEN 325 MG TABLET PO PRN (16:20)
--- NOTE | 2020-11-08 16:20 | NUR ---
PT NOTED WITH TEMP 101. COOLING MEASURES IN PLACE, ICE PACK IN ARMPIT, COOL WASH CLOTH ON FOREHEAD, PT UNCOVERED. TYLENOL 650MG PO Q6HR, PRN FOR FEVER ADMINISTERED PER ORDER AT THIS TIME. WILL CONTINUE TO MONITOR
--- NOTE | 2020-11-08 17:00 | NUR ---
PT's TEMP 98.9 AFTER COOLING MEASURES AND TYLENOL ADMINISTRATION, WILL CONTINUE TO MONITOR
--- NOTE | 2020-11-08 19:45 | NUR ---
RN OPENING NOTES PATIENT IN BED, ALERT AND ORIENTED. ON HIGH FLOW 60 L FIO2 100 %. DENIES ANY SOB. NO RESP DISTRESS NOTED. RT AT BEDSIDE. O2 SAT AT 90 %. DENIES ANY PAIN. IV ON RIGHT FA FLUSHED, PATENT AND INTACT. NO SIGNS OF INFECTION. TELE MONITOR SHOWS SR. ALL SAFETY MEASURES IMPLEMENTED PER PROTOCOL. BED LOCKED IN LOWEST POSITION. CALL LIGHT WITHIN REACH.
[2020-11-08 20:00] VITALS: BP 125/85
--- NOTE | 2020-11-08 20:40 | NUR ---
PROPERTY ANALYST CLOSING NOTES PT RESTING IN BED AT THIS TIME. PT REMAINED STABLE THROUGHOUT SHIFT. ALL CARE, NEED, MEDICATIONS AND TREATMENT ADMINISTERED ANTICIPATED PER ORDER. PT KEPT CLEAN AND DRY. SAFETY PRECAUTION IN PLACE AND MAINTAINED AT ALL TIMES. BED IN LOWEST LOCKED POSITION, HOB ELEVATED, SIDE RAILS UP X 2, CALL LIGHT AND TABLE WITHIN REACH. WILL ENDORSE TO SEAFOOD TEAM MEMBER NURSE FOR LI
[2020-11-08] MEDS: CEFTRIAXONE 1 G in IV D5W 50 ML IV SCH (21:04)
[2020-11-09] VITALS (7 sets, daily range): BP systolic 128–150; BP diastolic 69–82
--- NOTE | 2020-11-09 07:30 | NUR ---
SCIENTIST IMMUNOLOGY OPENING NOTES RECEIVED PATIENT IN BED, AWAKE, A/O X3. PATIENT ON HIGH FLOW 60L FIO2 100% AND NONREBREATHER 15L WITH O2 SAT OF 86%; LOOKS TO HAVE SOB BUT DENIES ANY. TELE MONITOR WITH A READING OF SINUS TACHY 127. RFA IV ACCESS PRESENT AND INTACT. SAFETY PRECAUTIONS IN PLACE; BED IN LOW POSITION AND LOCKED, HOB ELEVATED, RAILS UP X2, CALL LIGHT WITHIN REACH. WILL CONTINUE TO MONITOR PATIENT.
--- NOTE | 2020-11-09 07:37 | NUR ---
RN CLOSING NOTES PATIENT REMAINS IN BED ALERT AND ORIENTED. CONTINUE ON HIGH FLOW 60L FIO2 100% AND NONREBREATHER 15L WITH O2 SAT OF 88 %. PATIENT DENIES ANY SOB, NO SIGNS OF RESPIRATORY DISTRESS. KEPT HOB ELEVATED. TELE MONITOR SHOWS SINUS TACHY HR 112. IV SITE ON RIGHT FA PATENT AND INTACT, FLUSHED ASEPTICALLY. ALL SAFETY MEASURES IMPLEMENTED PER PROTOCOL, CALL LIGHT WITHIN REACH. BED LOCKED IN LOWEST POSITION. SIDE RAILS UP.
[2020-11-09 07:52] LABS: BASOPHILS # (AUTO) 0.1 /CMM (0.0-0.2); BASOPHILS % (AUTO) 0.3 % (0.0-2.0); EOSINOPHILS % (AUTO) 0.1 % (0.0-6.0); HEMATOCRIT 40 % (33-45); HEMOGLOBIN 13.2 g/dL (11.5-14.8); LYMPHOCYTES # (AUTO) 1.4 /CMM (0.8-4.8); LYMPHOCYTES % (AUTO) 4.5 % (20.0-44.0); MEAN CORPUSCULAR HGB CONC 33 g/dl (31.0-36.0); MEAN CORPUSCULAR VOLUME 91 fL (82-100); MONOCYTES % (AUTO) 6.6 % (2.0-12.0); NEUTROPHILS # (AUTO) 26.9 /CMM (1.8-8.9); NEUTROPHILS % (AUTO) 88.5 % (43.0-81.0); PLATELET COUNT (AUTO) 274 /CMM (150-450); RED BLOOD CELL COUNT(AUTO) 4.45 MIL/uL (4.0-5.2)
[2020-11-09 08:21] LABS: WHITE BLOOD COUNT (AUTO) 30.4 K/uL (4.3-11.0)
[2020-11-09] MEDS: DEXAMETHASONE SOD PHOSPHATE 10 MG/ML VIAL IV SCH (08:24)
--- NOTE | 2020-11-09 08:30 | NUR ---
PULMONARY PHYSICAL THERAPIST NOTES LAB CALLED WITH A CRITICAL VALUE OF WBC OF 30.4 PRIMARY PRESENT AND NOTIFIED.
[2020-11-09 08:57] LABS: CALCIUM, SERUM 8.9 mg/dL (8.5-10.1); CREATININE 0.5 mg/dL (0.6-1.3)
[2020-11-09] MEDS: ACETAMINOPHEN 325 MG TABLET PO PRN (08:59)
--- NOTE | 2020-11-09 09:09 | NUR ---
TEXTILE COATING MACHINE OPERATOR NOTES PATIENT WITH FEVER OF 100.4. PRN TYLENOL ADMINISTERED. WILL CONTINUE TO MONITOR PATIENT.
[2020-11-09 09:47] LABS: LYMPHOCYTES % (MANUAL) 8 % (16-48); MONOCYTES % (MANUAL) 4 % (0-11.0); NEUTROPHILS % (MANUAL) 88 (42-76)
--- NOTE | 2020-11-09 09:54 | NUR ---
SPORTS AGENT NOTES PATIENT SEEN BY PRIMARY; STAT ABG ORDERED DUE TO PATIENT DESATURATION TO 83-84%.
[2020-11-09 10:15] LABS: ABG BASE EXCESS 2.3 mmol/L; ABG PCO2 37.8 mmHg (35.0-45.0); ABG PH 7.456 (7.350-7.450); ABG PO2 44.8 mmHg (75.0-100.0); O2Hb 83.3 % (94.0-97.0); SITE, ABG Left Radial; VENT MODE, BG HHF 60L 100% + NRB @ 15L
[2020-11-09] MEDS ORDERED: diphenhydrAMINE HCL 50 MG/ML VIAL IV ONE ×2 (13:00→15:00)
[2020-11-09] MEDS ORDERED: ACETAMINOPHEN 650 MG/20.3 ML UDC PO ONE (15:00)
[2020-11-09] MEDS ORDERED: TOCILIZUMAB 400 MG in IV NS 0.9% 80 ML IV ONE (15:30)
--- NOTE | 2020-11-09 18:58 | NUR ---
BLOCKERS SKIVER CLOSING NOTES PATIENT REMAINS IN BED, AWAKE, A/O X3. PATIENT ON HIGH FLOW 60L FIO2 100% AND NONREBREATHER 15L WITH O2 SAT OF 87-88%; PER MD PATIENT TO LAY IN PRONE POSITION MUCH POSSIBLE FOR BETTER SATURATION. TELE MONITOR WITH A READING OF SINUS TACHY 118. RFA IV ACCESS PRESENT AND INTACT. ALL NEEDS ATTENDED THROUGHOUT THE DAY. SAFETY PRECAUTIONS IN PLACE; BED IN LOW POSITION AND LOCKED, HOB ELEVATED, RAILS UP X2, CALL LIGHT WITHIN REACH. WILL ENDORSE TO ELEVATOR INSTALLER APPRENTICE NURSE.
--- NOTE | 2020-11-09 20:07 | NUR ---
RN NOTES PATIENT IN BED, AWAKE, A/O X3. PATIENT ON HIGH FLOW 60L FIO2 100% AND NONREBREATHER 15L WITH O2 SAT OF 87-88%. DENIES ANY PAIN AT THIS TIME. TELE MONITOR WITH A READING OF SINUS TACHY 105. RFA IV ACCESS PRESENT AND INTACT, FLUSHED WITH NS. BED LOCKED AND IN LOWEST POSITION. SIDE RAILS UP X2, CALL LIGHT WITHIN REACH. WILL CONTINUE TO MONITOR.
--- NOTE | 2020-11-09 20:25 | NUR ---
RN NOTE REPORT RECEIVED FROM DUSTIN HAYES, PATIENT IN BED, ON SEMI STREET'S. PATIENT IN NO S/SX OF ACUTE DISTRESS AT THIS TIME. PATIENT IS ON 60 L OF OXYGEN VIA HIGH FLOW NC AND 15 LPM VIA NRB MASK, SATURATING AT 85-88% AT THE MOMENT. PATIENT ON TELE MONITOR READING ST, HR IS 123. NOTED IV SITE RFA 22G, PATENT AND FLUSHING WELL, NO S/S OF INFECTION OR INFILTRATION. SAFETY MEASURES IMPLEMENTED PER PROTOCOL. CALL LIGHT WITHIN REACH OF THE PATIENT. PATIENT ENCOURAGED TO SHIFT TO PRONE POSITION. WILL CONTINUE TO MONITOR OXYGENATION STATUS AND REASSESS FOR ANY CHANGES.
[2020-11-10] VITALS: BP 137/42
--- NOTE | 2020-11-10 | NUR ---
RN NOTE NOTED TEMP 99.1. COOLING MEASURES PROVIDED. PRN TYLENOL ADMINISTERED PER ORDERS. WILL CONTINUE TO MONITOR.
[2020-11-10] MEDS: ACETAMINOPHEN 325 MG TABLET PO PRN (00:31)
--- NOTE | 2020-11-10 00:51 | NUR ---
RN NOTES 2019 NOTIFIED BY ABIGAIL CHAN THAT PER REPORT PATIENT IS TO TRANSFER TO ICU. CHECKED ON DR. FITZGERALD'S NOTES AND ORDERS; CHANGED PATIENT STATUS TO ICU AND DELEGATED CARE TO ABIGAIL ALVAREZ. PATIENT ALERT AND RESPONSIVE. CONTINUE ON BOTH NRBM AND HI FLOW OXYGEN. 2345 PATIENT DESATTING. EXPLAINED BY PRIMARY RN KIM THE NEED TO BE ON PRONE POSITION BUT REFUSED. WILL CONTINUE TO MONITOR. ED, RT CAME ALSO AND TALKED TO PATIENT ABOUT PRONING ; REMAINS FULL CODE SATURATING LOW 80'S; STILL REFUSED TO BE ON PRONE POSITION DESPITE RT'S EXPLANATION. WENT TO TALK TO PATIENT; ADAMANTLY REFUSED TO BE ON PRONE. PATIENTS STATES SHE IS AFRAID TO DO IT AND AFRAID TO BE BY HERSELF IN THE ROOM. REASSURED PATIENT THE I WILL BE WITH HER WHEN SHE REPOSITION TO PRONE AND CHECK ON HER EVERY NOW AND THEN; BUT CANNOT STAY WITH HER THE WHOLE TIME. ALSO EXPLAINED THE CONSEQUENCE OF CONTINUED DESATURATION. SATURATING TO 79-80%, AGREED TO BE ON PRONE POSITION. ASSISTED TO PRONE POSITION WITH ABIGAIL ALVAREZ. STAYED WITH PATIENT FOR A WHILE; ED, RT ALSO ON WATCH; REASSURED PATIENT THE SHE WILL BE CHECKED REGULARLY. AGREED TO STAY AT LEAST FOR 3 HRS ON PRONE. 0100 REMAINS ON PRONE POSITION; SATURATION 84-85%. WILL CONTINUE TO MONITOR Addendum: 11/10/20 at 0413 by CHRISTOS DIALLO RN 0230 able to tolerate 2.5hrs proning stayed at 83-84% with both NRBM 15L and hi flow 100% FiO2/ Stayed on her side and continue to sustain 84% will closely monitor. 0335 saturation 70's; tachypneic and tachycardic. Dr. Beal notified ABG drawn. Called administrative staff supervisor, Ed in ER and Ed in ICU to give them a heads up. [address] Beal for possible intubation. ABG result with PO2 32; called ER ; wanted Ede Beal to call them. [address]400Spoke to Dr. Beal , relayed ABG result and stated he spoke to ER MD already. Ed in ER notified. RT's in the unit with the vent. Awaiting for MD. Inserted G20 to RH. 0413 Intubation done. XRAY called Addendum: 11/10/20 at 0546 by CHRISTOS DIALLO RN After intubation, Ed, ICU CRN spoke to Kathryn Bryant for orders. BP 173/98 HR 158 o2 sat 90% on vent 100% FiO2 RR 18. 0504 started propofol; continue to monitor. 0525 left a message to Greg, son to call back. 0540 Greg, son and Rosemarie, daughter in law called back, put me on speaker phone. Gave them an update.
--- NOTE | 2020-11-10 03:00 | NUR ---
RN NOTE ENCOURAGED PATIENT TO TURN TO PRONE POSITION PER MD ORDERS. PATIENT AGREED AT 0030, AND STAYED ON PRONE POSITION FOR 2 1/2 HOURS. PATIENT SHIFTED RIGHT SIDE LYRING. WILL CONTINUE TO MONITOR O2 STATUS
--- NOTE | 2020-11-10 03:30 | NUR ---
RN NOTE PATIENT DESATING TO 70'S, ABG DONE, DR MEGAN Hoyos WAS NOTIFIED. RECEIVED ORDERS TO INTUBATE PATIENT. ICU [facility] COOKER AND ER MD WAS NOTIFIED. [facility]ON[facility] COOKER AWARE.
[2020-11-10 03:51] LABS: ABG BASE EXCESS -2.6 mmol/L; ABG OXYGEN SATURATION 58.5 % (92.0-98.5); ABG PCO2 44.6 mmHg (35.0-45.0); ABG PH 7.337 (7.350-7.450); ABG PO2 32.5 mmHg (75.0-100.0); AaDO2 635.9 mmHg; COHb 1.1 % (0.5-1.5); MetHb 0.2 % (0.0-1.5); O2Hb 57.7 % (94.0-97.0); SITE, ABG Left Brachial
[2020-11-10 04:00] VITALS: BP 146/89
--- NOTE | 2020-11-10 04:10 | NUR ---
RN NOTE PATIENT SUCCESSFULLY INTUBATED AT 0410. CXR WAS DONE, RYAN RT ADJUSTED ET TUBE BY 2 CM. TELE MONITOR READING SINUS TACHY AT 140'S. PATIENT STARTED ON PROPOFOL DRIP. WILL CONTINUE TO MONITOR FOR CHANGES. TUNNEL MINER AWARE.
[2020-11-10] MEDS ORDERED: IV NS 0.9% 500 ML BAG IV ONE (04:30)
[2020-11-10] MEDS ORDERED: PROPOFOL 100 ML ONE (04:55)
[2020-11-10] MEDS ORDERED: PHENYLEPHRINE 10 MG/ML VIAL ONE (04:56)
[2020-11-10] MEDS ORDERED: PHENYLEPHRINE 50 MG in IV NS 0.9% 245 ML IV PRN (05:00)
--- NOTE | 2020-11-10 05:00 | NUR ---
RN NOTE ABG 1 HOUR POST INTUBATION RESULTED, PO2 60.5. DR MEGAN Brennan WAS NOTIFIED. ORDERS RECEIVED TO INCREASE RATE TO 26. RYAN RT AND MOVER HELPER AWARE.
[2020-11-10] MEDS: PROPOFOL 100 ML IV PRN ×4 (05:04→21:02)
--- NOTE | 2020-11-10 05:09 | NUR ---
Received pt on high flow nasal canula and NRB double setup, pts saturation on 100% fio2 was 78% to 84%, ABG was obtained and based on results pt was intubated by EDWARDO GAGE, vent settings AC 18, 550, 100%, +5 PEEP, ET TUBE SECURED AT 23 CM @ LIP. Addendum: 11/10/20 at 0518 by RYAN HOLLIDAY RT ET TUBE AT 22 CM @ LIP
[2020-11-10 05:41] LABS: ABG OXYGEN SATURATION 85.3 % (92.0-98.5); ABG PCO2 72.3 mmHg (35.0-45.0); ABG PH 7.179 (7.350-7.450); ABG PO2 60.5 mmHg (75.0-100.0); AaDO2 580.2 mmHg; COHb 1.1 % (0.5-1.5); MetHb 0.3 % (0.0-1.5); O2Hb 84.1 % (94.0-97.0); PEEP,BG 5 cm H2O; SITE, ABG Right Brachial; VT, ABG 550 mL
[2020-11-10 07:43] LABS: BASOPHILS # (AUTO) 0.4 /CMM (0.0-0.2); BASOPHILS % (AUTO) 0.8 % (0.0-2.0); EOSINOPHILS % (AUTO) 0.3 % (0.0-6.0); HEMATOCRIT 45 % (33-45); HEMOGLOBIN 14.5 g/dL (11.5-14.8); LYMPHOCYTES # (AUTO) 1.6 /CMM (0.8-4.8); LYMPHOCYTES % (AUTO) 3.1 % (20.0-44.0); MEAN CORPUSCULAR HGB CONC 32 g/dl (31.0-36.0); MEAN CORPUSCULAR VOLUME 94 fL (82-100); MONOCYTES # (AUTO) 2.8 /CMM (0.1-1.30); MONOCYTES % (AUTO) 5.6 % (2.0-12.0); NEUTROPHILS # (AUTO) 44.7 /CMM (1.8-8.9); NEUTROPHILS % (AUTO) 90.2 % (43.0-81.0); PLATELET COUNT (AUTO) 318 /CMM (150-450); RED BLOOD CELL COUNT(AUTO) 4.81 MIL/uL (4.0-5.2)
[2020-11-10 07:50] LABS: WHITE BLOOD COUNT (AUTO) 49.6 K/uL (4.3-11.0)
[2020-11-10 08:00] VITALS: BP 146/89
[2020-11-10 08:29] LABS: ALBUMIN 2.3 g/dL (3.4-5.0); CREATININE 0.9 mg/dL (0.6-1.3); MAGNESIUM 2.5 mg/dL (1.8-2.4); PHOSPHORUS 6.6 mg/dL (2.5-4.9); POTASSIUM 4.5 mmol/L (3.5-5.1); TOTAL PROTEIN, SERUM 7.5 g/dL (6.4-8.2)
--- NOTE | 2020-11-10 09:00 | NUR ---
RT RESP RATE CHANGED 30 PER MD DEVI
[2020-11-10 09:53] LABS: LYMPHOCYTES % (MANUAL) 3 % (16-48); MONOCYTES % (MANUAL) 5 % (0-11.0); NEUTROPHILS % (MANUAL) 92 (42-76)
[2020-11-10 10:00] LABS: C-REACTIVE PROTEIN 62.7 mg/dL (0.0-0.9)
[2020-11-10] MEDS: DEXAMETHASONE SOD PHOSPHATE 10 MG/ML VIAL IV SCH (10:20)
[2020-11-10] MEDS ORDERED: IV NS 0.9% 1,000 ML IV ONE (11:30)
[2020-11-10] MEDS ORDERED: IV LR 1000 ML 1,000 ML IV ONE (12:00)
[2020-11-10] MEDS ORDERED: PROPOFOL 100 ML IV PRN (12:30)
[2020-11-10] MEDS ORDERED: ENOXAPARIN SODIUM 40 MG/0.4 ML DISP.SYRIN SQ SCH (12:30)
--- NOTE | 2020-11-10 12:30 | NUR ---
RT RT CALLED TO BEDSIDE FOR EKG ABG VENT SETTING WERE CHANGED BY [facility] AWAITING FOR VENT ORDERS PT BREATHING HIGH 40s vent settting found at ac/pc 10 rr30 100% +5 informed milk delivery driver finney
[2020-11-10] MEDS ORDERED: VANCOMYCIN 1.5 GM in IV D5W 500 ML IV ONE (14:00)
[2020-11-10] MEDS ORDERED: CEFEPIME 2 GM in IV D5W 100 ML IV SCH (15:00)
[2020-11-10 15:28] LABS: ABG BASE EXCESS -1.6 mmol/L; ABG OXYGEN SATURATION 91.6 % (92.0-98.5); ABG PCO2 66.9 mmHg (35.0-45.0); ABG PH 7.232 (7.350-7.450); ABG PO2 68.6 mmHg (75.0-100.0); AaDO2 504.5 mmHg; COHb 0.8 % (0.5-1.5); MetHb 0.1 % (0.0-1.5); O2Hb 90.8 % (94.0-97.0); PEEP,BG 10 cm H2O; SITE, ABG Right Radial
[2020-11-10 16:00] VITALS: BP 146/89
[2020-11-10 16:18] LABS: BILIRUBIN,DIRECT 0.4 mg/dL (0.0-0.2)
[2020-11-10] MEDS ORDERED: ACETAMINOPHEN 650 MG/SUPP.RECT RC PRN ×2 (17:00)
[2020-11-10] MEDS ORDERED: KEY,NONCONTROL,TO KEEP IN PYXI 1 EA MC ONE (17:45)
[2020-11-10] MEDS: FENTANYL CITRATE IV 1,250 MCG in IV NS 0.9% 225 ML IV PRN ×2 (18:02→19:37)
--- NOTE | 2020-11-10 19:30 | NUR ---
sericulture teacher notes Received pts in bed sedated ,on ventilator settings pcv 10 fio2 90% rate of 30 peep of 8 , on sinus tach on the monitor 130s sating 95% pts on right hand G#20 and left hand G #20 both intact and patent, no sob no distress noted, Pt on propofol at 60mcg/kg /min tolerating well. fentanyl at 17mls /hr as ordered on progress ,Ivf of Ns 50cc /hr on progress, vital signs BP111/63 HR138 RR 35 Temp 103, cooling measured rendered , tylenol suppository administered as ordered,all needs attended to call light within reach, suction secretion done turned and repositioned . will continue to monitor pts.Kept pts clean dry and comfortable.
[2020-11-10 20:00] VITALS: BP 111/63
[2020-11-10 20:30] VITALS: BP 106/63
--- NOTE | 2020-11-10 20:30 | NUR ---
assistant superintendent for curriculum notes Recheck temp still 102 continue on cooling measures , latest temp is 102 will continue to monitor pts.
--- NOTE | 2020-11-10 22:15 | NUR ---
RN NOTES ROSA ELENA RODRIGUEZ AND JOHN FOLEY CALLED; UPDATE GIVEN
[2020-11-11] MEDS: PROPOFOL 100 ML IV PRN (00:32)
[2020-11-11] MEDS ORDERED: PHENYLEPHRINE 10 MG/ML VIAL ONE (00:58)
[2020-11-11 01:00] VITALS: BP 65/45
--- NOTE | 2020-11-11 01:05 | NUR ---
inspector agricultural commodities notes Pts noted on the monitor with blood pressure 60/38 hr 40 , pts is full code , phenylephrine about to start but heart continue dropping ,[facility] called at 0110hrs, no pulse noted chest compression initiated , [facility] team arrived at 0114hrs , report given to ER doctor Kanchan , [facility] team take over.
--- NOTE | 2020-11-11 01:20 | NUR ---
RN NOTES CODE BLUE WAS CALLED AROUND 0110. WHILE CODE IS ONGOING, NOTIFIED DR.. MEGAN GASTELUM WHILE DEON RIVERA SUPERVISOR CALL FAMILY. 0130 CODE BLUE ENDED. PATIENT WAS PRONOUNCED BY DR. ESTRADA, ER 0140 DR. MEGAN GASTELUM NOTIFIED. JENNIFER, SON AND JOHN FOLEY APPRISED OF PATIENT'S DEMISE.
[2020-11-11] MEDS ORDERED: SODIUM BICARBONATE SYR 50 MEQ/50 ML DISP.SYRIN IV ONE (01:29)
[2020-11-11] MEDS ORDERED: EPINEPHRINE (1:10,000) SYRINGE 1 MG/10 ML DISP.SYRIN IVP ONE (01:29)
[2020-11-11] MEDS ORDERED: DEXTROSE 50%-WATER 50 ML DISP.SYRIN IV ONE (01:29)
--- NOTE | 2020-11-11 01:30 | NUR ---
rn notes Pts was pronounced by Dr Hemphill at 0130hrs.family was informed , Dr talavera made aware of time of . AT 0200 hrs ,[facility] [employer] called spoke to Rusty with case # [id number].
--- NOTE | 2020-11-11 02:40 | NUR ---
agricultural economics teacher notes Post mortem done as ordered .
--- NOTE | 2020-11-11 02:40 | NUR ---
horticulture/floriculture teacher notes Leonel from admission made aware of patient time of .
--- NOTE | 2020-11-11 03:07 | NUR ---
agriculture research director notes. Spoke to the son rene regarding mortuary he said hes working on it.
[2020-11-11] MEDS ORDERED: KEY,NONCONTROL,TO KEEP IN PYXI 1 EA MC ONE (04:29)
--- NOTE | 2020-11-11 05:21 | NUR ---
rn notes spoke to rene pts son belongings will be collected by him , belongings form endorse to charge nurse soon.
--- NOTE | 2020-11-11 05:23 | NUR ---
field horticultural specialty grower notes body was bring down to [facility].
[2020-11-11] MEDS ORDERED: VANCOMYCIN 1.25 GM in IV D5W 250 ML IV SCH (08:00)
== END 2020-11-11 01:30 | disposition expired | DRG 137 ==
LOC: ER 15:32 → OBSVTOIN 10-31 04:00 → TRANSITION 10-31 04:00 → TELE1 11-01 13:01 → ICUOV 11-09 20:20
PROVIDERS: ADMIT Registered Nurse; ATTEND Nurse Practitioner Acute Care
PROC: XW033E5 Introduction of Remdesivir Anti-infective into Peripheral Vein, Percutaneous Approach, New Technology Group 5 (ICD-10-PCS; 2020-11-01)
PROC: XW13325 Transfusion of Convalescent Plasma (Nonautologous) into Peripheral Vein, Percutaneous Approach, New Technology Group 5 (ICD-10-PCS; 2020-11-07)
PROC: 5A1935Z Respiratory Ventilation, Less than 24 Consecutive Hours (ICD-10-PCS; principal; 2020-11-09)
PROC: XW033H5 Introduction of Tocilizumab into Peripheral Vein, Percutaneous Approach, New Technology Group 5 (ICD-10-PCS; 2020-11-09)
PROC: 5A12012 Performance of Cardiac Output, Single, Manual (ICD-10-PCS; 2020-11-09)
PROC: 0BH18EZ Insertion of Endotracheal Airway into Trachea, Via Natural or Artificial Opening Endoscopic (ICD-10-PCS; 2020-11-10)
DX: U07.1 COVID-19 (principal); J12.89 Other viral pneumonia; J96.01 Acute respiratory failure with hypoxia; E66.01 Morbid (severe) obesity due to excess calories; D72.819 Decreased white blood cell count, unspecified; E43 Unspecified severe protein-calorie malnutrition; E11.65 Type 2 diabetes mellitus with hyperglycemia; N17.0 Acute kidney failure with tubular necrosis; E87.2 Acidosis; I21.A1 Myocardial infarction type 2; J96.02 Acute respiratory failure with hypercapnia; R57.9 Shock, unspecified; R74.01 Elevation of levels of liver transaminase levels; Z68.34 Body mass index [BMI] 34.0-34.9, adult; E88.09 Other disorders of plasma-protein metabolism, not elsewhere classified; T38.0X5A Adverse effect of glucocorticoids and synthetic analogues, initial encounter; Y92.89 Other specified places as the place of occurrence of the external cause
CPT/HCPCS: 31720; 36415; 36600; 71045-TC; 80048-TC; 80053-TC; 80061-TC; 80076-TC; 82248-TC; 82550-TC; 82728-TC; 82803-TC; 83605-TC; 83615-TC; 83735-TC; 84100-TC; 84443-TC; 84478-TC; 84484-TC; 85025-TC; 85378-TC; 85385-TC; 85610-TC; 86140-TC; 86850-TC; 87040-TC; 87081-TC; 94003-TC; 94760-TC; 94762-TC; 94799-TC; A4216; A4217; A6403; G0378; J0171; J0456; J0692; J0696; J1100; J1200; J1650; J2370; J2405; J3010; J3262; J3370; J3490; J7030; J7050; J7060; P9017-BL; U0003